=== PATIENT | female | born 1980 | race Two or more races ===

== ENCOUNTER 2018-08-08 08:49 | Emergency (ER) | payer MEDICAID ==
[~2018-08-08] VITALS: Ht 170.2 cm; Wt 69.9 kg
[2018-08-08 09:02] VITALS: BP 122/77
[2018-08-08 09:27] LABS: Urine Bacteria FEW /hpf (None Seen); Urine Blood 1+ /uL (Negative); Urine Specific Gravity 1.011 (1.001-1.035); Urine WBC 388 /hpf (0 - 5); Urine WBC Clumps PRESENT /hpf (None Seen)
[2018-08-08] MEDS ORDERED: LIDOCAINE 1%HCL (LOCAL ANESTH) 10 ML MDV ONE (09:39)
[2018-08-08] MEDS ORDERED: IBUPROFEN 800 MG TAB PO ONE (09:45)
[2018-08-08] MEDS ORDERED: cefTRIAXone SOD 1,000 MG VL IM ONE (09:45)
== END 2018-08-08 10:04 | disposition home or self-care (01) ==
LOC: ER 08:49
DX: N39.0 Urinary tract infection, site not specified (principal); R50.9 Fever, unspecified; Z32.02 Encounter for pregnancy test, result negative
CPT/HCPCS: 81001; 81025; 96372; 99284; J0696; J2001